=== PATIENT | male | born 1955 ===

== ENCOUNTER 2021-03-06 09:07 | Inpatient (IN) | payer MEDICARE ==
[~2021-03-06] VITALS: Ht 182.9 cm; Wt 111.2 kg
[~2021-03-06 09:07] MED LIST: DEXAMETHASONE6 MG PO
[2021-03-06 11:50] LABS: HEMOGLOBIN 16.1 gm/dl (14.0-17.5); RED BLOOD COUNT 5.62 M/UL (4.20-5.50); WHITE BLOOD COUNT 14.2 K/UL (4.5-11.0)
[2021-03-06 12:19] LABS: BUN/CREATININE RATIO 36 (0-10)
[2021-03-06] MEDS ORDERED: CITALOPRAM HBR20 MG PO (15:04)
[2021-03-06] MEDS ORDERED: GABAPENTIN300 MG PO (15:04)
[2021-03-06] MEDS ORDERED: AMLODIPINE BESY10 MG PO (15:04)
[2021-03-06] MEDS ORDERED: LISINOPRIL40 MG PO (15:05)
[2021-03-06] MEDS ORDERED: ASPIRIN EC81 MG PO (15:05)
[2021-03-06] MEDS ORDERED: MAGNESIUM400 M2 PO (15:06)
[2021-03-06] MEDS ORDERED: ZINC50 M1 PO (15:06)
[2021-03-06] MEDS ORDERED: ASCORBIC ACID500 MG PO (15:07)
[2021-03-06] MEDS ORDERED: VITAMIN D325 MCG PO (15:07)
[2021-03-07 06:42] LABS: HEMOGLOBIN 16.1 gm/dl (14.0-17.5); RED BLOOD COUNT 5.62 M/UL (4.20-5.50)
[2021-03-07 07:04] LABS: BUN/CREATININE RATIO 40 (0-10)
[2021-03-08 04:56] LABS: BUN/CREATININE RATIO 42 (0-10)
--- NOTE | 2021-03-13 10:40 | NUR ---
AT 0710 THIS MORNING PATIENT WAS ALERT AND ORIENTED X3 AND WAS TRYING TO TAKE BIPAP OFF, OXYGEN SATURATION WAS SHOWING OXYGEN DOWN INTO 70'S%. EXPLAINED THE IMPORTANCE OF KEEPING THE BIPAP ON TO IMPROVE OXYGENATION AND THE RISKS OF HAVING THE BIPAP OFF. PATIENT VERBALIZED UNDERSTANDING. CALL LIGHT WAS IN REACH, BED ALARM ON, AND BED IN LOWEST POSITION BEFORE LEAVING THE ROOM. AT 0750 ENTERED THE ROOM BECAUSE THE SPO2 ALARM WAS DINGING. PATIENT HAD PULLED THE BIPAP CONNECTOR LOOSE AND WAS WITNESSED SLIDING INTO THE FLOOR. AT THIS TIME PATIENT WAS DISORIENTED TO PLACE AND TIME. BED WAS NOTED TO BE ELEVATED AND BED ALARM WAS TURNED OFF. HEAD TO TOE ASSESSMENT COMPLETED WITH NO INJURIES NOTED. PATIENT WAS ASSISTED BACK INTO THE BED. A STRIP ALARM WAS APPLIED TO THE BED AND PLUGGED IN AND WORKING. THE BED ALARM WAS TURNED ON AND IS FUNCTIONING PROPERLY. BUSINESS AND MARKETING TEACHER NOTIFIED AND STATED THAT THEY WILL WORK ON GETTING A SITTER. AWARE.
--- NOTE | 2021-03-13 12:19 | NUR ---
PT'S SON AND REQUESTED PT'S CODE STATUS BE CHANGED TO FULL CODE, MD AND TICKETER SPOKE WITH SONNATALIE, AND CODE STATUS CHANGED AND NEW ORDERS PLACED TO MOVE PT TO ICU PER PULMONARY AND CARDIOLOGY.
[2021-03-13 12:29] LABS: HEMOGLOBIN 17.5 gm/dl (14.0-17.5); RED BLOOD COUNT 6.07 M/UL (4.20-5.50); WHITE BLOOD COUNT 22.8 K/UL (4.5-11.0)
[2021-03-14 05:51] LABS: HEMOGLOBIN 14.8 gm/dl (14.0-17.5); RED BLOOD COUNT 5.35 M/UL (4.20-5.50); WHITE BLOOD COUNT 25.2 K/UL (4.5-11.0)
[2021-03-15 03:15] LABS: HEMOGLOBIN 15.2 gm/dl (14.0-17.5); RED BLOOD COUNT 5.47 M/UL (4.20-5.50)
[2021-03-15 06:13] LABS: WHITE BLOOD COUNT 43.3 K/UL (4.5-11.0)
[2021-03-16 05:07] LABS: HEMOGLOBIN 13.1 gm/dl (14.0-17.5); RED BLOOD COUNT 4.67 M/UL (4.20-5.50); WHITE BLOOD COUNT 31.4 K/UL (4.5-11.0)
[2021-03-17 05:00] LABS: RED BLOOD COUNT 4.6 M/UL (4.20-5.50)
== END 2021-03-17 17:08 | disposition expired | DRG 853 ==
LOC: ER1 09:07 → PROG CARE 14:37 → CDU 14:37 → CCU 14:37 → PROG CARE 20:38 → CCU 03-13 14:04
PROVIDERS: Emergency Medicine; Internal Medicine Interventional Cardiology; Internal Medicine Nephrology; Physician Assistant; Physician Assistant Medical; Student in an Organized Health Care Education/Training Program; ADMIT Internal Medicine
PROC: XW033E5 Introduction of Remdesivir Anti-infective into Peripheral Vein, Percutaneous Approach, New Technology Group 5 (ICD-10-PCS; principal; 2021-03-06)
PROC: 3E0333Z Introduction of Anti-inflammatory into Peripheral Vein, Percutaneous Approach (ICD-10-PCS; 2021-03-06)
PROC: XW033H5 Introduction of Tocilizumab into Peripheral Vein, Percutaneous Approach, New Technology Group 5 (ICD-10-PCS; 2021-03-06)
PROC: 5A09357 Assistance with Respiratory Ventilation, Less than 24 Consecutive Hours, Continuous Positive Airway Pressure (ICD-10-PCS; 2021-03-06)
PROC: 4A023N7 Measurement of Cardiac Sampling and Pressure, Left Heart, Percutaneous Approach (ICD-10-PCS; 2021-03-13)
PROC: B2111ZZ Fluoroscopy of Multiple Coronary Arteries using Low Osmolar Contrast (ICD-10-PCS; 2021-03-13)
PROC: 0BH17EZ Insertion of Endotracheal Airway into Trachea, Via Natural or Artificial Opening (ICD-10-PCS; 2021-03-13)
PROC: 5A1945Z Respiratory Ventilation, 24-96 Consecutive Hours (ICD-10-PCS; 2021-03-13)
PROC: B24BZZZ Ultrasonography of Heart with Aorta (ICD-10-PCS; 2021-03-13)
PROC: 02C03ZZ Extirpation of Matter from Coronary Artery, One Artery, Percutaneous Approach (ICD-10-PCS; 2021-03-13)
PROC: 02HV33Z Insertion of Infusion Device into Superior Vena Cava, Percutaneous Approach (ICD-10-PCS; 2021-03-15)
PROC: 3E033XZ Introduction of Vasopressor into Peripheral Vein, Percutaneous Approach (ICD-10-PCS; 2021-03-15)
DX: A41.89 Other specified sepsis (principal); R65.21 Severe sepsis with septic shock; J12.82 Pneumonia due to coronavirus disease 2019; U07.1 COVID-19; J15.9 Unspecified bacterial pneumonia; I21.3 ST elevation (STEMI) myocardial infarction of unspecified site; N17.0 Acute kidney failure with tubular necrosis; J80 Acute respiratory distress syndrome; E87.2 Acidosis; E87.1 Hypo-osmolality and hyponatremia; I47.2 Ventricular tachycardia; J90 Pleural effusion, not elsewhere classified; I42.8 Other cardiomyopathies; Z66 Do not resuscitate; Z51.5 Encounter for palliative care; E11.65 Type 2 diabetes mellitus with hyperglycemia; M48.8X4 Other specified spondylopathies, thoracic region; E87.70 Fluid overload, unspecified; E87.5 Hyperkalemia; F41.9 Anxiety disorder, unspecified; R34 Anuria and oliguria; E78.5 Hyperlipidemia, unspecified; I10 Essential (primary) hypertension; E66.01 Morbid (severe) obesity due to excess calories; Z68.33 Body mass index [BMI] 33.0-33.9, adult; Z82.49 Family history of ischemic heart disease and other diseases of the circulatory system; Z79.82 Long term (current) use of aspirin; Z79.899 Other long term (current) drug therapy; Z23 Encounter for immunization
CPT/HCPCS: 31500; 36415; 36600; 71045; 71046; 80048; 80053; 81001; 82009; 82550; 82553; 82570; 82803; 82962; 83605; 83735; 83874; 84132; 84133; 84156; 84300; 84484; 85025; 85027; 85347; 85610; 85730; 86140; 87040; 87070; 87205; 89050; 92920; 92973; 93005; 94003; 94640; 94660; 94664; 94760; 96372; 99284; A6212; C1725; C1757; C1769; C1887; C9113; J0330; J0360; J0456; J0461; J0610; J0696; J1100; J1644; J1650; J2020; J2060; J2185; J2250; J2270; J2370; J2704; J3010; J3246; J3486; J7030; J7040; J7050; J7070; J7120; P9047; Q0249; Q9967